=== PATIENT | male | born 1990 | race Caucasian/White ===

== ENCOUNTER 2023-07-13 15:27 | Emergency (ER) | payer BC, MEDICAID, SELFPAY ==
--- NOTE | 2023-07-13 15:30 | ECG_ITS ---
[facility] Test Date: 2023-07-13 Pat Name: Mateus Villela Department: Room: Gender: Male Resident Care Director: : 1990 Requested By: Bear Acuña Order Number: [id number] Jose Luis MD: Martha Nova M.D. Measurements Intervals [place] Rate: 83 P: 45 LA: 168 QRS: 13 QRSD: 98 T: 60 QT: 349 QTc: 411 Interpretive Statements SINUS RHYTHM No previous ECG available for comparison Electronically Signed On 07-13-2023 22:12:47 CDT by Martha Nova M.D. [id number]
[2023-07-13 15:33] VITALS: BP 164/102; PULSE 91; RESP 16; TEMP 36.6; O2SAT 100
--- NOTE | 2023-07-13 16:07 | XRR_ITS ---
PROCEDURE INFORMATION: Exam: XR Chest Exam date and time: 07/13/2023 4:22 PM Age: 32 years old Clinical indication: Other: Chest pain TECHNIQUE: Imaging protocol: Radiologic exam of the chest. Views: 1 view. COMPARISON: No relevant prior studies available. FINDINGS: Lungs: No focal lung consolidation. Pleural spaces: No pleural effusion. No pneumothorax. Heart/Mediastinum: Unremarkable. No cardiomegaly. Bones/joints: No acute bony abnormality. XR/XR chest 1V portable [id number] IMPRESSION: No focal lung consolidation.
[2023-07-13 17:14] LABS: Basophils % 0.4 %; Eosinophils # 0.1 10^3/uL (0.0-0.8); Eosinophils % 1.1 %; Hematocrit 44.6 % (37-53); Lymphocytes # 2.3 10^3/uL (0.8-4.8); Lymphocytes % 25.3 %; Mean Corpuscular Hemoglobin 28.5 pg (27-33); Mean Corpuscular Volume 86.4 fl (82-101); Mean Platelet Volume 10.7 fL (7.4-10.4); Monocytes # 0.6 10^3/uL (0.2-0.9); Monocytes % 6.7 %; Neutrophils # 5.88 10^3/uL (1.8-7.7); Neutrophils % 66.2 %; Nucleated Red Blood Cells % 0 %; Platelet Count 285 10^3/cmm (157-399); Red Blood Count 5.16 10^6/uL (3.85-5.65); Red Cell Distribution Width 13.2 % (12.1-15.1)
[2023-07-13 17:39] LABS: Troponin(5th) Baseline 8 ng/L (0-15)
--- NOTE | 2023-07-13 17:40 | ECG_ITS ---
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 Measurements Intervals [place] Rate: 66 P: 39 CA: 166 QRS: 13 QRSD: 97 T: 58 QT: 374 QTc: 392 Interpretive Statements SINUS RHYTHM WITH MARKED SINUS ARRHYTHMIA Compared to ECG 07/13/2023 15:30:00 No significant changes Electronically Signed On 07-13-2023 22:19:30 CDT by Martha Nova M.D. [email or web address] [facility] centerL[facility]/store/OM/[id number]
[2023-07-13 17:48] LABS: Alanine Aminotransferase 25 U/L (0-41); Albumin Level 5.1 g/dL (3.5-5.2); Alkaline Phosphatase 78 U/L (40-130); Anion Gap 17.9 (5-19); Aspartate Amino Transferase 19 U/L (0-40); Blood Urea Nitrogen 19 mg/dL (6-20); Calcium 9.4 mg/dL (8.5-10.5); Carbon Dioxide 24 mmol/L (22-29); Chloride 101 mmol/L (98-107); Creatinine Clr Calc Pharmacy 240.3405; Globulin 3.2 g/dL (1.3-4.6); Glomerular Filtration Rate 87.2 mL/min (90-130); Glucose 86 mg/dL (65-115); Lipase 22 U/L (13-60); NT Pro B Type Natriuretic Pept < 36 pg/mL (0-125); Osmolality Calculated 290 mOsm/kg (285-295); Potassium 3.9 mmol/L (3.5-5.1); Sodium 139 mmol/L (136-145); Total Bilirubin 0.5 mg/dL (0.15-1.2); Total Protein 8.3 g/dL (6.6-8.7)
--- NOTE | 2023-07-13 18:05 | ED_ITS ---
HPI - Chest Pain 2 General: Chief Complaint: Chest Pain Stated Complaint: high bp and chest pains Time Seen by Provider: 07/13/23 18:05 History of Present Illness: 32-year-old male patient comes in today with complaints of left shoulder and arm pain. Patient has a history of high blood pressure and CHF. Patient appears nontoxic. Patient appears in no pain. Review of Systems 2 General: Reports: 10 or more systems reviewed and unremarkable except in HPI and below PFSH ED 2 PFSH: Medical History (Updated 07/13/23 @ 18:35 by TARIQ Cedeno) Family history of heart disease Hypertension Family History Grandmother Heart disease Hypertension Father Hypertension Mother Hypertension Denies family history of Diabetes Atrial fibrillation TIA (transient ischemic attack) Hypothyroidism Chronic kidney disease (CKD) Seizure disorder Cancer Social History Smoking and tobacco/nicotine status: current every day tobacco/nicotine user smokeless tobacco Smokeless tobacco user: chewing tobacco Alcohol intake: never Substance/Drug Use: never Adopted: No Caregiver/support person: No Lives independently: No Household members: spouse Marital status: service: No Current occupational status: employed Sexually active: Yes Do you think of yourself as: Straight/Heterosexual Current gender identity: Male Physical Exam 2 Const: COMMON NORMALS: alert HENMT: COMMON NORMALS: normocephalic HEAD & SCALP: normocephalic Neck/C-Spine: COMMON NORMALS: full ROM Resp: COMMON NORMALS: normal respiratory effort and clear to auscultation bilaterally AUSCULTATION: clear to auscultation bilaterally Cardio: COMMON NORMALS: regular rate and regular rhythm RATE: regular rate RHYTHM: regular rhythm GI: COMMON NORMALS: Soft to palpation PALPATION: Yes Soft to palpation Extremity: COMMON NORMALS: no pedal edema Neuro: SENSORIUM/ORIENTATION: Yes alert Skin: COMMON NORMALS: turgor normal GENERAL SKIN EXAM: turgor normal Course 2 Vital Signs: Vital signs: Vital Signs Temperature 97.8 F 07/13/23 15:33 Pulse Rate 91 07/13/23 15:33 Respiratory Rate 16 07/13/23 15:33 Blood Pressure 164/102 07/13/23 15:33 Pulse Oximetry 100 07/13/23 15:33 Oxygen Delivery Me thod Room Air 07/13/23 15:33 MDM - Chest Pain Medical Decision Making 32-year-old male patient comes in today for complaints of left shoulder and arm pain. On exam patient appears nontoxic. Respirations are even lungs are clear to auscultation. Abdomen soft nontender. Skin is warm and dry. Vital signs are normal except for some elevated blood pressure at 164 systolic. Laboratory values were unremarkable. No elevation was noted in the BNP or troponin at this time. Electrolytes were normal. Reviewed exam with patient with recommendations for treatment and follow-up with primary care. Lab Data 07/13/23 17:00 07/13/23 17:00 Radiology Impressions Chest X-Ray 07/13/23 16:07 IMPRESSION: No focal lung consolidation. Laboratory Results WBC 8.90 10^3/uL (3.29-11.43) 07/13/23 17:00 RBC 5.16 10^6/uL (3.85-5.65) 07/13/23 17:00 Hgb 14.70 g/dL (11.27-16.99) 07/13/23 17:00 Hct 44.6 % (37-53) 07/13/23 17:00 MCV 86.4 fl (82-101) 07/13/23 17:00 MCH 28.5 pg (27-33) 07/13/23 17:00 MCHC 33.0 g/dL (30-55) 07/13/23 17:00 RDW 13.2 % (12.1-15.1) 07/13/23 17:00 Plt Count 285 10^3/cmm (157-399) 07/13/23 17:00 MPV 10.7 fL (7.4-10.4) H 07/13/23 17:00 Neut % (Auto) 66.2 % 07/13/23 17:00 Lymph % (Auto) 25.3 % 07/13/23 17:00 [place] % (Auto) 6.7 % 07/13/23 17:00 Eos % (Auto) 1.1 % 07/13/23 17:00 Baso % (Auto) 0.4 % 07/13/23 17:00 Neut # (Auto) 5.88 10^3/uL (1.8-7.7) 07/13/23 17:00 Lymph # (Auto) 2.3 10^3/uL (0.8-4.8) 07/13/23 17:00 [place] # (Auto) 0.6 10^3/uL (0.2-0.9) 07/13/23 17:00 Eos # (Auto) 0.1 10^3/uL (0.0-0.8) 07/13/23 17:00 Baso # (Auto) 0.0 10^3/uL (0.0-0.1) 07/13/23 17:00 Nucleated RBC % (auto) 0 % 07/13/23 17:00 Nucleated RBCs # 0.0 /100WBC 07/13/23 17:00 Sodium 139 mmol/L (136-145) 07/13/23 17:00 Potassium 3.9 mmol/L (3.5-5.1) 07/13/23 17:00 Chloride 101 mmol/L (98-107) 07/13/23 17:00 Carbon Dioxide 24 mmol/L (22-29) 07/13/23 17:00 Anion Gap 17.9 (5-19) 07/13/23 17:00 BUN 19 mg/dL (6-20) 07/13/23 17:00 Creatinine 1.0 mg/dL (0.7-1.2) 07/13/23 17:00 GFR Calculation 87.2 mL/min (90-130) L 07/13/23 17:00 Glucose 86 mg/dL (65-115) 07/13/23 17:00 Calculated Osmolality 290 mOsm/kg (285-295) 07/13/23 17:00 Calcium 9.4 mg/dL (8.5-10.5) 07/13/23 17:00 Total Bilirubin 0.5 mg/dL (0.15-1.2) 07/13/23 17:00 AST 19 U/L (0-40) 07/13/23 17:00 ALT 25 U/L (0-41) 07/13/23 17:00 Alkaline Phosphatase 78 U/L (40-130) 07/13/23 17:00 Troponin T Baseline 8 ng/L (0-15) 07/13/23 17:00 NT-Pro-B Natriuret Pep < 36 pg/mL (0-125) 07/13/23 17:00 Total Protein 8.3 g/dL (6.6-8.7) 07/13/23 17:00 Albumin 5.1 g/dL (3.5-5.2) 07/13/23 17:00 Globulin 3.2 g/dL (1.3-4.6) 07/13/23 17:00 Lipase 22 U/L (13-60) 07/13/23 17:00 All radiology interpretation(s) finalized by discharge Discharge Plan Discharge Patient Disposition: Home Clinical Impression: Chest pain Qualifiers: Chest pain type: unspecified Qualified Code(s): R07.9 - Chest pain, unspecified Hypertension Qualifiers: Hypertension type: primary hypertension Qualified Code(s): I10 - Essential (primary) hypertension Condition: Stable Prescriptions: No Action metoprolol tartrate 50 mg tablet 50 mg PO DAILY 90 Days Qty: 90 0RF lisinopril 20 mg tablet 20 mg PO BID 90 Days Qty: 180 0RF hydrochlorothiazide 12.5 mg tablet 12.5 mg PO DAILY 90 Days Qty: 90 0RF amlodipine 5 mg tablet 5 mg PO DAILY 30 Days Qty: 30 0RF Discharge Orders: Discharge ED (Routine); Ordered 07/13/23 Ordered By: Bear Ling Referrals: Cuba Betancur FNP [Primary Care Provider] - Discharge Diet: Usual diet Discharge Activity: Increase activity as tolerated Patient Instructions: Chest Pain (ED) Activity Restrictions/Additional Instructions: Follow-up with primary care in 1 week for recheck of blood pressure. Return to ED for new concerns or worsening symptoms such as severe chest pain, and severe shortness of breath. Coding Level of Care Code ED Alcohol Law Enforcement Agent for Fabiola Montoya
[2023-07-13 18:47] VITALS: BP 143/78; PULSE 69; O2SAT 97
[2023-07-13 18:51] VITALS: BP 143/78; PULSE 69; RESP 16; TEMP 36.6; O2SAT 97
== END 2023-07-13 18:54 | disposition home or self-care (01) ==
PROVIDERS: Emergency Provider Nurse Practitioner Family; PCP Registered Nurse
DX: R07.9 Chest pain, unspecified (principal); I10 Essential (primary) hypertension; F17.220 Nicotine dependence, chewing tobacco, uncomplicated
CPT/HCPCS: 36415; 71045; 80053; 83690; 83880; 84484; 85025; 93005; 99285

== ENCOUNTER 2023-07-28 09:36 | Outpatient (CLI) | payer BC, MEDICAID, SELFPAY ==
[2023-07-28 09:39] VITALS: BMI 47.4
--- NOTE | 2023-07-28 09:52 | ECG_ITS ---
[facility] Test Date: 2023-07-28 Pat Name: Mateus Villela Department: Room: Gender: Male Rehab Consultant: : 1990 Requested By: Cuba Betancur Order Number: [id number] Amaya MD: Tyson Robb M.D. Interpretive Statements NAME OF STUDY: TREADMILL STRESS TEST INDICATION: [Chest Pain] EXERCISE DATA: The patient was exercised by Pop protocol. Baseline heart rate was 75 beats per minute. Baseline blood pressure was 144/97 millimeters of mercury. Maximal predicted heart rate was 189 beats per minute. Maximum heart rate achieved was 175 which was 92% of the maximum predicted heart rate. Maximum blood pressure was 202/94 millimeters of mercury. Total exercise time was 6 minutes 47 seconds. Maximum METs achieved was 10.2. The reason for ending the test was completion of protocol. The patient complained of shortness of breath during the stress test, which then resolved at the end of the test. ELECTROCARDIOGRAM: BASELINE: Showed sinus rhythm, normal axis, no significant ST-T changes at the baseline noted. [] EXERCISE: At the peak exercise level, [] No significant ST-T changes suggestive of ischemia noted. [] RECOVERY: During the recovery period, heart rate dropped appropriately. No significant ST-T changes in the recovery suggestive of ischemia noted. [] CONCLUSION: 1. Exercise capacity is good.. 2. Heart rate response was appropriate. 3. Blood pressure response was hypertensive. 4. Symptoms not suggestive of ischemia. 5. Stress test does not show ischemia. Electronically Signed On 08-10-2023 11:59:53 CDT by Tyson Robb M.D. [id number]
[2023-07-28 10:56] VITALS: BP 166/94; PULSE 113
== END 2023-07-28 09:37 | disposition home or self-care (01) ==
PROVIDERS: PCP Registered Nurse; Visit Provider Registered Nurse
DX: I10 Essential (primary) hypertension (principal)
CPT/HCPCS: 93017

== ENCOUNTER → 2024-08-01 16:08 | Outpatient (BNVA) | payer BC, MEDICAID, SELFPAY | PROVIDERS: PCP Registered Nurse; Visit Provider Internal Medicine Cardiovascular Disease | DX: R07.9 Chest pain, unspecified (principal); I49.8 Other specified cardiac arrhythmias; R93.1 Abnormal findings on diagnostic imaging of heart and coronary circulation | CPT/HCPCS: 93005 ==

== ENCOUNTER → 2024-08-30 09:59 | Outpatient (BNVA) | payer BC, MEDICAID, SELFPAY | PROVIDERS: PCP Registered Nurse; Visit Provider Nurse Practitioner Family | DX: I10 Essential (primary) hypertension (principal) | CPT/HCPCS: 80048; 83880 ==